=== PATIENT | female | born 1985 | race Caucasian/White ===

== ENCOUNTER 2018-07-18 18:01 | Observation (INO) ==
[2018-07-18] MEDS ORDERED: 0.9 % Sodium Chloride 1,000 ML IVC ONE (18:34)
[2018-07-18] MEDS ORDERED: Ketorolac 30 MG/ML VIAL IVP ONE (18:34)
[2018-07-18] MEDS ORDERED: Ondansetron 4 MG/2 ML VIAL IVP ONE (18:35)
[2018-07-18] MEDS ORDERED: Isovue-370 500 ML BOTTLE IVP ONE (18:35)
--- NOTE | 2018-07-18 18:38 | Emergency Department Note ---
Disposition Clinical Impression: Abdominal pain Qualifiers: Abdominal location: right lower quadrant Qualified Code(s): R10.31 - Right lower quadrant pain Acute appendicitis Qualifiers: Acute appendicitis type: unspecified acute appendicitis type Qualified Code(s): K35.80 - Unspecified acute appendicitis Disposition: Admitted As Inpatient Condition: Good Time of Disposition: 20:33 Abdominal Pain HPI - General Chief Complaint: ED Abdominal Pain Stated Complaint: RLQ Pain Time Seen by Provider: 07/18/18 18:10 Source: patient Mode of arrival: ambulatory Limitations: no limitations Nursing Notes Reviewed: Yes Vital Signs Reviewed: Yes - History of Present Illness HPI Narrative: 32-year-old otherwise healthy female persists for evaluation of right lower qu adrant pain. Patient states symptom onset started earlier this morning around 1 to 3:00 in the morning. Patient states he is having nausea and vomiting and diarrhea. Noted subsequent onset of periumbilical pain which became more localized to the right lower quadrant this afternoon. Patient states pain became worse approximately 5 hours prior to arrival. States pain is worse with the car ride over and movement. Patient states she has had some hot and cold chills. Denies any dysuria or hematuria. Denies a vaginal bleeding or discharge. Denies possibility of being . States that her LMP was 1 month ago but states she has regular periods every 3 months. Patient states she had some crackers earlier this morning but has not eaten anything in the past 6 hours. Patient also has diversion of appetite. Pain Scale: 6 - Related Data Home Medications Medication Instructions Recorded Confirmed Cetirizine HCl [Zyrtec] 10 mg PO DAILY PRN 07/18/18 07/18/18 l-Norgest/E.estradiol-E.estrad 1 tab PO DAILY 07/18/18 07/18/18 [Seasonique 0.15-0.03-0.01 Tab] Allergies Allergy/AdvReac Type Severity Reaction Status Date / Time No Known Allergies Allergy Verified 07/18/18 18:02 All systems ED: reviewed and negative except as stated. Constitutional: Denies: fever Cardiovascular: Denies: chest pain Respiratory: Denies: cough, dyspnea Gastrointestinal: Reports: abdominal pain, nausea, vomiting, diarrhea Abdominal Pain PMH - Past Medical History Medical history: Reports: no medical history Female Surgical History: Reports: no surgical history Psychiatric history: Reports: no psych history - Social History Smoking status: Never smoker Alcohol use: Reports: occasionally Drug use: Reports: none Physical Exam - General Limitations: no limitations General appearance: alert, in no apparent distress - Head Head exam: atraumatic, normocephalic, normal inspection - Eye Eye exam: Present: normal appearance, PERRL, EOMI - ENT ENT exam: normal exam, mucous membranes moist - Neck Neck exam: Present: normal inspection - Chest Chest inspection: Present: normal inspection, symmetric chest wall rise - Respiratory Respiratory exam: Present: normal lung sounds bilaterally. Absent: respiratory distress - Cardiovascular Cardiovascular exam: Present: regular rate, normal rhythm. Absent: normal heart sounds - Abdominal Exam Abdominal exam: Present: soft, Rovsing's sign, tenderness at McBurney's Point. Absent: guarding, rebound Abdominal tenderness: Present: RLQ - Extremities Exam Extremities exam: Present: normal inspection. Absent: pedal edema - Back Exam Back exam: Present: normal inspection - Neurological Exam Neurological exam: Present: alert, oriented X3, CN II-XII intact - Skin Skin exam: Present: warm, dry, intact, normal color Course Course Narrative: Patient seen and examined. Patient abdomen is non-peritoneal but does have evidence of right lower quadrant tenderness. Positive Rovsing's. Patient has concerning history and physical exam for appendicitis. Will obtain basic labs as well as CT scan of the abdomen pelvis. Disposition pending. - Reevaluation(s) Reevaluation #1: Given the high pretest probability of appendicitis with elevated lactate and the patient's exam antibiotics are initiated. Pending CT scan. Time: 20:16 Reevaluation #2: Patient family is requesting Dr. Ramires. Dr. Ramires aware and will accept the patient. Time: 20:46 - Consultations Consultation #1: Dr. Haywood did discuss the patient's case with Dr. Ramires who will evaluate the patient. Time: 20:32 Vital Signs Temperature 98.5 F 07/18/18 18:02 Pulse Rate 126 07/18/18 18:02 Respiratory Rate 14 07/18/18 18:02 Blood Pressure 166/100 07/18/18 18:02 O2 Sat by Pulse Oximetry 98 07/18/18 18:02 Temperature 98.5 F 07/18/18 18:02 Pulse Rate 110 07/18/18 20:15 Respiratory Rate 16 07/18/18 20:15 Blood Pressure 159/90 07/18/18 20:15 O2 Sat by Pulse Oximetry 100 07/18/18 20:15 Oxygen Delivery Oxygen Delivery Room Air Abdominal Pain - MDM Narrative Medical decision making narrative: Patient's physical exam laboratories will CT findings are concerning for acute appendicitis. Patient was given Zosyn as well as fluids and anti- inflammatories. Did discuss the case with surgery who will evaluate the patient. Patient will be admitted to the surgery services. Patient's exam is non-peritoneal during the ED course. - Lab Data Result diagrams: 07/18/18 19:15 07/18/18 19:15 Lab Results 07/18/18 07/18/18 07/18/18 Range/Units 18:18 18:18 19:15 WBC 22.7 H (4.3-11.1) K/mcL RBC 5.28 H (3.82-4.97) M/mcL Hgb 13.6 (11.5-15.4) g/dL Hct 42.1 (35.3-44.9) % MCV 79.7 L (83.0-100.0) fL MCH 25.8 L (28.0-33.3) pg MCHC 32.3 (31.6-35.5) g/dL RDW 14.7 H (11.5-14.5) % Plt Count 373 (140-400) K/mcL MPV 9.2 L (9.4-12.4) fL Immature Gran % 0.4 (0-4) % Seg Neutrophils % 85.2 % Lymphocytes % 10.0 % Monocytes % 4.2 % Eosinophils % 0.0 % Basophils % 0.2 % Neutrophils # 19.4 H (1.6-8.9) K/mcL Lymphocytes # 2.3 (0.6-4.6) K/mcL Monocytes # 1.0 (0.0-1.3) K/mcL Eosinophils # 0.0 (0.0-0.6) K/mcL Basophils # 0.0 (0.0-0.2) K/mcL PT (9.4-12.1) Seconds INR APTT (26.0-36.0) Seconds Sodium (136-145) mEq/L Potassium (3.5-5.1) mEq/L Chloride (98-107) mEq/L Carbon Dioxide (23-29) mEq/L BUN (6-20) mg/dL Creatinine (0.60-1.20) mg/dL Est GFR ( Amer) (> 60) Est GFR (Non-Af Amer) (> 60) BUN/Creatinine Ratio (6-26) Glucose (70-105) mg/dL Calculated Osmolality (280-300) Calcium (8.6-10.3) mg/dL Total Bilirubin (0.3-1.0) mg/dL Direct Bilirubin (0.0-0.2) mg/dL Indirect Bilirubin (0.0-1.2) mg/dL AST (13-39) Units/L ALT (7-52) Units/L Alkaline Phosphatase (34-104) Units/L Serum Total Protein (6.4-8.9) g/dL Albumin (3.5-5.7) g/dL Globulin (2.4-3.5) g/dL Albumin/Globulin Ratio (1.1-2.2) Urine Color Dark Yellow (Yellow) Urine Clarity Cloudy A (Clear) Urine pH 5.5 (5.0-8.0) pH Units Ur Specific [place] 1.027 H (1.010-1.025) Urine Protein 100 H (Neg-Trace) mg/dL Urine Glucose (UA) Normal (Normal) mg/dL Urine Ketones Trace H (Negative) mg/dL Urine Blood Trace H (Negative) Urine Nitrite Negative (Negative) Urine Bilirubin Negative (Negative) Urine Urobilinogen Normal (Normal) mg/dL Ur Leukocyte Esterase Small H (Negative) Urine Microscopic RBC 3-5 H (0-3) per hpf Urine Microscopic WBC 50-100 H (0-3) per hpf Ur Squamous Epith Cells Many H (None-Few) per lpf Urine Bacteria Many H (None-Few) per hpf Hyaline Casts Few (None-Few) per lpf Urine Mucus Moderate H (Few) Urine Test Negative (Negative) 07/18/18 07/18/18 Range/Units 19:15 19:15 WBC (4.3-11.1) K/mcL RBC (3.82-4.97) M/mcL Hgb (11.5-15.4) g/dL Hct (35.3-44.9) % MCV (83.0-100.0) fL MCH (28.0-33.3) pg MCHC (31.6-35.5) g/dL RDW (11.5-14.5) % Plt Count (140-400) K/mcL MPV (9.4-12.4) fL Immature Gran % (0-4) % Seg Neutrophils % % Lymphocytes % % Monocytes % % Eosinophils % % Basophils % % Neutrophils # (1.6-8.9) K/mcL Lymphocytes # (0.6-4.6) K/mcL Monocytes # (0.0-1.3) K/mcL Eosinophils # (0.0-0.6) K/mcL Basophils # (0.0-0.2) K/mcL PT 12.3 H (9.4-12.1) Seconds INR 1.1 APTT 27.6 (26.0-36.0) Seconds Sodium 140 (136-145) mEq/L Potassium 3.3 L (3.5-5.1) mEq/L Chloride 104 (98-107) mEq/L Carbon Dioxide 26 (23-29) mEq/L BUN 12 (6-20) mg/dL Creatinine 0.81 (0.60-1.20) mg/dL Est GFR ( Amer) > 60 (> 60) Est GFR (Non-Af Amer) > 60 (> 60) BUN/Creatinine Ratio 15 (6-26) Glucose 138 H (70-105) mg/dL Calculated Osmolality 292 (280-300) Calcium 9.5 (8.6-10.3) mg/dL Total Bilirubin 0.5 (0.3-1.0) mg/dL Direct Bilirubin 0.1 (0.0-0.2) mg/dL Indirect Bilirubin 0.4 (0.0-1.2) mg/dL AST 24 (13-39) Units/L ALT 39 (7-52) Units/L Alkaline Phosphatase 47 (34-104) Units/L Serum Total Protein 7.4 (6.4-8.9) g/dL Albumin 4.2 (3.5-5.7) g/dL Globulin 3.2 (2.4-3.5) g/dL Albumin/Globulin Ratio 1.3 (1.1-2.2) Urine Color (Yellow) Urine Clarity (Clear) Urine pH (5.0-8.0) pH Units Ur Specific [place] (1.010-1.025) Urine Protein (Neg-Trace) mg/dL Urine Glucose (UA) (Normal) mg/dL Urine Ketones (Negative) mg/dL Urine Blood (Negative) Urine Nitrite (Negative) Urine Bilirubin (Negative) Urine Urobilinogen (Normal) mg/dL Ur Leukocyte Esterase (Negative) Urine Microscopic RBC (0-3) per hpf Urine Microscopic WBC (0-3) per hpf Ur Squamous Epith Cells (None-Few) per lpf Urine Bacteria (None-Few) per hpf Hyaline Casts (None-Few) per lpf Urine Mucus (Few) Urine Test (Negative) - Radiology Data Radiology results reviewed: Yes I reviewed the patient's radiology results. Abdomen/Pelvis CT 07/18/18 18:35 IMPRESSION: Acute retrocecal appendicitis. There is significant periappendiceal fat stranding and trace fluid with no evidence of perforation or abscess. Findings were discussed with Trae Murillo DO at 8:43 pm on 07/18/2018. D/ / Man Sheridan MD / Man Sheridan MD Interpreting Provider: Man Sheridan MD Evan - Evan Situation: Demographics Background: Presenting Complaint Assessment: Vital Signs, Course and respsone to treatment, Patient/Family Expectation Recommendation: Barrier(s) to disposition, Recommendation based on pending studies, treatments, or consults Evan Report Given to: Dr. Keyla Gordon Repor Time: 20:46
--- NOTE | 2018-07-18 18:39 | Emergency Department Note ---
Disposition Clinical Impression: Abdominal pain Qualifiers: Abdominal location: right lower quadrant Qualified Code(s): R10.31 - Right lower quadrant pain Acute appendicitis Qualifiers: Acute appendicitis type: unspecified acute appendicitis type Qualified Code(s): K35.80 - Unspecified acute appendicitis Disposition: Admitted As Inpatient Condition: Good Time of Disposition: 15:01 General Adult HPI - General Chief complaint: ED Abdominal Pain Stated complaint: RLQ Pain Time Seen by Provider: 07/18/18 18:10 Source: patient Mode of arrival: ambulatory Limitations: no limitations - History of Present Illness Pain Scale: 6 - Related Data Home Medications Medication Instructions Recorded Confirmed Cetirizine HCl [Zyrtec] 10 mg PO DAILY PRN 07/18/18 07/18/18 l-Norgest/E.estradiol-E.estrad 1 tab PO DAILY 07/18/18 07/18/18 [Seasonique 0.15-0.03-0.01 Tab] Previous Rx's Medication Instructions Recorded Acetaminophen [Tylenol] 650 mg PO Q6HR PRN tablet 07/19/18 Allergies Allergy/AdvReac Type Severity Reaction Status Date / Time No Known Allergies Allergy Verified 07/18/18 18:02 Constitutional: Denies: fever Cardiovascular: Denies: chest pain Respiratory: Denies: cough, dyspnea Gastrointestinal: Reports: abdominal pain, nausea, vomiting, diarrhea Past Medical History - Past Medical History Medical history: Reports: no medical history Psychiatric history: Reports: no psych history - Social History Smoking Status: Never smoker Smokeless Tobacco Status: No Alcohol use: Reports: occasionally Drug use: Reports: none Physical Exam - General Limitations: no limitations General appearance: alert, in no apparent distress Course Vital Signs Temperature 98.5 F 07/18/18 18:02 Pulse Rate 126 07/18/18 18:02 Respiratory Rate 14 07/18/18 18:02 Blood Pressure 166/100 07/18/18 18:02 O2 Sat by Pulse Oximetry 98 07/18/18 18:02 Temperature 98.0 F 07/19/18 06:26 Pulse Rate 96 07/19/18 06:26 Respiratory Rate 18 07/19/18 06:26 Blood Pressure 125/70 07/19/18 06:26 O2 Sat by Pulse Oximetry 96 07/19/18 06:26 Oxygen Delivery Oxygen Delivery Room Air Medical Decision Making - Lab Data Result diagrams: 07/19/18 09:12 07/18/18 19:15 Lab Results 07/18/18 07/18/18 07/18/18 Range/Units 18:18 18:18 19:15 WBC 22.7 H (4.3-11.1) K/mcL RBC 5.28 H (3.82-4.97) M/mcL Hgb 13.6 (11.5-15.4) g/dL Hct 42.1 (35.3-44.9) % MCV 79.7 L (83.0-100.0) fL MCH 25.8 L (28.0-33.3) pg MCHC 32.3 (31.6-35.5) g/dL RDW 14.7 H (11.5-14.5) % Plt Count 373 (140-400) K/mcL MPV 9.2 L (9.4-12.4) fL Immature Gran % 0.4 (0-4) % Seg Neutrophils % 85.2 % Lymphocytes % 10.0 % Monocytes % 4.2 % Eosinophils % 0.0 % Basophils % 0.2 % Neutrophils # 19.4 H (1.6-8.9) K/mcL Lymphocytes # 2.3 (0.6-4.6) K/mcL Monocytes # 1.0 (0.0-1.3) K/mcL Eosinophils # 0.0 (0.0-0.6) K/mcL Basophils # 0.0 (0.0-0.2) K/mcL PT (9.4-12.1) Seconds INR APTT (26.0-36.0) Seconds Sodium (136-145) mEq/L Potassium (3.5-5.1) mEq/L Chloride (98-107) mEq/L Carbon Dioxide (23-29) mEq/L BUN (6-20) mg/dL Creatinine (0.60-1.20) mg/dL Est GFR ( Amer) (> 60) Est GFR (Non-Af Amer) (> 60) BUN/Creatinine Ratio (6-26) Glucose (70-105) mg/dL Calculated Osmolality (280-300) Calcium (8.6-10.3) mg/dL Total Bilirubin (0.3-1.0) mg/dL Direct Bilirubin (0.0-0.2) mg/dL Indirect Bilirubin (0.0-1.2) mg/dL AST (13-39) Units/L ALT (7-52) Units/L Alkaline Phosphatase (34-104) Units/L Serum Total Protein (6.4-8.9) g/dL Albumin (3.5-5.7) g/dL Globulin (2.4-3.5) g/dL Albumin/Globulin Ratio (1.1-2.2) Urine Color Dark Yellow (Yellow) Urine Clarity Cloudy A (Clear) Urine pH 5.5 (5.0-8.0) pH Units Ur Specific [place] 1.027 H (1.010-1.025) Urine Protein 100 H (Neg-Trace) mg/dL Urine Glucose (UA) Normal (Normal) mg/dL Urine Ketones Trace H (Negative) mg/dL Urine Blood Trace H (Negative) Urine Nitrite Negative (Negative) Urine Bilirubin Negative (Negative) Urine Urobilinogen Normal (Normal) mg/dL Ur Leukocyte Esterase Small H (Negative) Urine Microscopic RBC 3-5 H (0-3) per hpf Urine Microscopic WBC 50-100 H (0-3) per hpf Ur Squamous Epith Cells Many H (None-Few) per lpf Urine Bacteria Many H (None-Few) per hpf Hyaline Casts Few (None-Few) per lpf Urine Mucus Moderate H (Few) Urine Test Negative (Negative) 07/18/18 07/18/18 Range/Units 19:15 19:15 WBC (4.3-11.1) K/mcL RBC (3.82-4.97) M/mcL Hgb (11.5-15.4) g/dL Hct (35.3-44.9) % MCV (83.0-100.0) fL MCH (28.0-33.3) pg MCHC (31.6-35.5) g/dL RDW (11.5-14.5) % Plt Count (140-400) K/mcL MPV (9.4-12.4) fL Immature Gran % (0-4) % Seg Neutrophils % % Lymphocytes % % Monocytes % % Eosinophils % % Basophils % % Neutrophils # (1.6-8.9) K/mcL Lymphocytes # (0.6-4.6) K/mcL Monocytes # (0.0-1.3) K/mcL Eosinophils # (0.0-0.6) K/mcL Basophils # (0.0-0.2) K/mcL PT 12.3 H (9.4-12.1) Seconds INR 1.1 APTT 27.6 (26.0-36.0) Seconds Sodium 140 (136-145) mEq/L Potassium 3.3 L (3.5-5.1) mEq/L Chloride 104 (98-107) mEq/L Carbon Dioxide 26 (23-29) mEq/L BUN 12 (6-20) mg/dL Creatinine 0.81 (0.60-1.20) mg/dL Est GFR ( Amer) > 60 (> 60) Est GFR (Non-Af Amer) > 60 (> 60) BUN/Creatinine Ratio 15 (6-26) Glucose 138 H (70-105) mg/dL Calculated Osmolality 292 (280-300) Calcium 9.5 (8.6-10.3) mg/dL Total Bilirubin 0.5 (0.3-1.0) mg/dL Direct Bilirubin 0.1 (0.0-0.2) mg/dL Indirect Bilirubin 0.4 (0.0-1.2) mg/dL AST 24 (13-39) Units/L ALT 39 (7-52) Units/L Alkaline Phosphatase 47 (34-104) Units/L Serum Total Protein 7.4 (6.4-8.9) g/dL Albumin 4.2 (3.5-5.7) g/dL Globulin 3.2 (2.4-3.5) g/dL Albumin/Globulin Ratio 1.3 (1.1-2.2) Urine Color (Yellow) Urine Clarity (Clear) Urine pH (5.0-8.0) pH Units Ur Specific [place] (1.010-1.025) Urine Protein (Neg-Trace) mg/dL Urine Glucose (UA) (Normal) mg/dL Urine Ketones (Negative) mg/dL Urine Blood (Negative) Urine Nitrite (Negative) Urine Bilirubin (Negative) Urine Urobilinogen (Normal) mg/dL Ur Leukocyte Esterase (Negative) Urine Microscopic RBC (0-3) per hpf Urine Microscopic WBC (0-3) per hpf Ur Squamous Epith Cells (None-Few) per lpf Urine Bacteria (None-Few) per hpf Hyaline Casts (None-Few) per lpf Urine Mucus (Few) Urine Test (Negative) Attestation Statement - Attestation Attestation: I reviewed the residents documentation and agree with the residents assessment and plan of care. I have personally had face to face time with the patient. (Brief History, Brief Exam, and MDM) I personally supervised and was present for the fu/critical portions of the following procedures completed by the resident: (add procedures performed here). [id number] time provided Patient was complaining of right lower quadrant pain that started periumbilically. She notes nausea, vomiting, anorexia. She appears in no acute distress on exam. Triage note and vitals reviewed by me
[2018-07-18 18:42] LABS: Bilirubin,Urine Negative (Negative); Blood,Urine Trace (Negative); Clarity,Urine Cloudy (Clear); Color,Urine Dark Yellow (Yellow); Glucose,Urine (UA) Normal (Normal); Ketones,Urine Trace mg/dL (Negative); Leukocyte Esterase,Urine Small (Negative); Nitrite,Urine Negative (Negative); PH,Urine 5.5 pH Units (5.0-8.0); Protein,Urine 100 mg/dL (Neg-Trace); Specific Gravity,Urine 1.027 (1.010-1.025); Urobilinogen,Urine Normal (Normal)
[2018-07-18 18:45] LABS: Bacteria,Urine Many per hpf (None-Few); Squamous Epithelial Cell,Urine Many per lpf (None-Few); WBC,Urine 50-100 per hpf (0-3)
[2018-07-18 18:55] LABS: Hyaline Casts,Urine Few per lpf (None-Few); Mucus,Urine Moderate (Few)
[2018-07-18 19:36] LABS: Basophils % 0.2 %; Hematocrit 42.1 % (35.3-44.9); Hemoglobin 13.6 g/dL (11.5-15.4); Immature Granulocytes % 0.4 % (0-4); Lymphocytes # 2.3 K/mcL (0.6-4.6); Mean Corpuscular HGB Conc 32.3 g/dL (31.6-35.5); Mean Corpuscular Hemoglobin 25.8 pg (28.0-33.3); Mean Corpuscular Volume 79.7 fL (83.0-100.0); Mean Platelet Volume 9.2 fL (9.4-12.4); Monocytes % 4.2 %; Neutrophils # 19.4 K/mcL (1.6-8.9); Platelet Count 373 K/mcL (140-400); Red Blood Count 5.28 M/mcL (3.82-4.97); Red Cell Distribution Width 14.7 % (11.5-14.5); Segmented Neutrophils % 85.2 %
[2018-07-18 19:49] LABS: Alanine Aminotransferase 39 Units/L (7-52); Albumin 4.2 g/dL (3.5-5.7); Albumin/Globulin Ratio 1.3 (1.1-2.2); Alkaline Phosphatase 47 Units/L (34-104); Aspartate Amino Transferase 24 Units/L (13-39); BUN/Creatinine Ratio 15 (6-26); Bilirubin,Direct 0.1 mg/dL (0.0-0.2); Bilirubin,Indirect 0.4 mg/dL (0.0-1.2); Bilirubin,Total 0.5 mg/dL (0.3-1.0); Blood Urea Nitrogen 12 mg/dL (6-20); Calcium 9.5 mg/dL (8.6-10.3); Carbon Dioxide 26 mEq/L (23-29); Chloride 104 mEq/L (98-107); Globulin 3.2 g/dL (2.4-3.5); Glucose 138 mg/dL (70-105); Osmolality,Calculated 292 (280-300); Potassium 3.3 mEq/L (3.5-5.1); Sodium 140 mEq/L (136-145); Total Protein 7.4 g/dL (6.4-8.9); eGFR For Non-African Americans > 60 (> 60)
[2018-07-18] MEDS ORDERED: Piperacillin/Tazobactam 3.375 GM in Water for inj. (sterile) 20 ML 20 ML IVP ONE (20:04)
[2018-07-18] MEDS ORDERED: 0.9 % Sodium Chloride 1,000 ML IVC SCH (20:30)
[2018-07-18 20:47] LABS: INR 1.1; Prothrombin Time 12.3 Seconds (9.4-12.1)
[2018-07-18 20:50] LABS: Activated Partial Thrombo Time 27.6 Seconds (26.0-36.0)
[2018-07-18] MEDS ORDERED: Lidocaine -MPF 4% 5 ML AMPUL ONE (21:15)
[2018-07-18] MEDS ORDERED: *HR* Succinylcholine 200 MG/10 ML VIAL IVP ONE (21:15)
[2018-07-18] MEDS ORDERED: *HR* Midazolam HCl 2 MG/2 ML VIAL ONE (21:15)
[2018-07-18] MEDS ORDERED: *HR* Rocuronium Bromide 50 MG/5 ML VIAL ONE ×2 (21:15→23:33)
[2018-07-18] MEDS ORDERED: *HR* Propofol 200 MG/20 ML VIAL IVP ONE (21:15)
[2018-07-18] MEDS ORDERED: Lidocaine -MPF 2% 2 ML VIAL ONE (21:15)
[2018-07-18] MEDS ORDERED: *HR* FentaNYL (PF) 100 MCG/2 ML VIAL ONE (21:15)
[2018-07-18] MEDS ORDERED: Bupivacaine/EPI 1:200k 0.25%PF 30 ML VIAL ONE (21:20)
[2018-07-18] MEDS ORDERED: Dexamethasone 4 MG/ML VIAL ONE (21:21)
[2018-07-18] MEDS ORDERED: Ondansetron 4 MG/2 ML VIAL ONE (21:21)
[2018-07-18] MEDS ORDERED: Metoclopramide 10 MG/2 ML VIAL ONE (21:21)
[2018-07-18] MEDS ORDERED: Ketorolac 30 MG/ML VIAL ONE (21:24)
[2018-07-18] MEDS ORDERED: Acetaminophen IV 1,000 MG/100 ML INFUS..BTL ONE (21:25)
[2018-07-18] MEDS ORDERED: Famotidine 20 MG/2 ML VIAL ONE (21:25)
--- NOTE | 2018-07-18 21:34 | Anesthesia Evaluation PreOp ---
Date of Encounter: 07/19/18 Time of Encounter: 21:32 - Past History Planned Operation: Lap Appy Cardiac History: Denies any Significant Hx Pulmonary History: Denies Any Significant HX GASTROENTEROLOGY NURSE History: Denies Any Significant HX Other Medical History: Denies Any Significant HX Anesthesia History: No Prior Anesthetic Complications, Past Anesthesia Alcohol Use: occasionally Drug use: none Medications and Allergies Cetirizine HCl [Zyrtec] 10 mg PO DAILY PRN 07/18/18 [History] l-Norgest/E.estradiol-E.estrad [Seasonique 0.15-0.03-0.01 Tab] 1 tab PO DAILY 07/18/18 [History] Allergy/AdvReac Type Severity Reaction Status Date / Time No Known Allergies Allergy Verified 07/18/18 18:02 - Meds/Allergy Pre-op Review Medications Reviewed: Yes Allergies Reviewed: Yes Beta Blockers on Current Med List: No Anesthesia Results - Labs 07/18/18 19:15 07/18/18 19:15 Impressions Abdomen/Pelvis CT 07/18/18 18:35 IMPRESSION: Acute retrocecal appendicitis. There is significant periappendiceal fat stranding and trace fluid with no evidence of perforation or abscess. Findings were discussed with Trae Murillo DO at 8:43 pm on 07/18/2018. D/ / Man Sheridan MD / Man Sheridan MD Interpreting Provider: Man Sheridan MD Laboratory Results Laboratory Tests 07/18/18 07/18/18 07/18/18 18:18 19:15 19:15 PT 12.3 H INR 1.1 Est GFR (Non-Af Amer) > 60 Urine Test Negative Anesthesia Exam Vital Signs Temp Pulse Resp BP Pulse Ox 07/18/18 20:15 110 16 159/90 100 07/18/18 19:18 99 16 171/105 99 07/18/18 18:02 98.5 F 126 14 166/100 98 Intake and Output 07/18/18 07/18/18 07/18/18 07:59 15:59 23:59 Intake Total 1020 / 1020 Balance 1020 / 1020 Intake: IV Fluids 1020 / 1020 0.9 % Sodium Chloride 1,000 ML 1000 / 1000 @ 999 mls/hr IVC .Q1H1M ONE Rx# :[id number] Zosyn 3.375 GM In Water for inj 20 / 20 . (sterile) 20 ML @ 400 mls/hr IVP ONCE ONE Rx#:[id number] Other: Weight 96.071 kg Height: 5'7" Weight: 211# BMI = 33 NPO (# of Hours): MNoc - HEENT Pupil (Motor): Pupils equal, EOMI Mallampati: II Teeth: Normal Oral Opening: Greater than 3 - GASTROENTEROLOGY NURSE LOC: Oriented GASTROENTEROLOGY NURSE Motor: Normal RUE, Normal LUE, Normal RLE, Normal LLE, Normal Face GASTROENTEROLOGY NURSE Sensory: Normal: RUE, LUE, RLE, LLE, Face - Cardiac Rhythm: Regular Murmur: None - Pulmonary Breath Sounds: bilateral Clear Respiratory Effort: Symmetrical Anesthesia Assess/Plan ASA Score: 2, E Level of consciousness: Cooperative, Oriented, Tranquil Anesthetic Plan: General Autologous Blood: Yes Recovery Plan: PACU Anes Supervising Prov Stmt: Pt seen/evaluated, R&B Discussed, questions answered and consent obtained. Louise Melvin MD
--- NOTE | 2018-07-18 22:27 | General Surg History&Physical ---
Date of Encounter: 07/18/18 Time of Encounter: 21:50 History of Present Illness Chief complaint: Acute right lower quadrant abdominal pain; acute appendicitis HPI: Ms. Ballesteros is a 32 year old female referred to me, at the patient's request, for further evaluation and treatment right lower quadrant abdominal pain. The symptoms began abruptly at approximately 0100 early this morning. It awaken the patient from sleep. The patient experienced nausea/vomiting early this morning but none since and she has not tried to eat anything. Symptoms progressed prompting patient to present to the emergency department for further evaluation and treatment. Lab work was notable for WBC 22.7 with 19.4 neutrophils. Electrolytes notable for potassium of 3.3, BUN 12, creatinine 0.81. LFTs were normal, and urinalysis was notable for specific gravity 1.027 with 100 protein and trace ketones and trace blood. Microscopic showed 3-5 RBC/hpf and 50-100 wbc/hpf. CT is notable for a dilated retrocecal appendix with thick, enhancing wall and periappendiceal fat stranding. Findings are consistent with early acute appendicitis prompting surgical referral. Past medical history: None Surgical history: No previous surgeries Allergies: No known drug allergies Medications: control Social history: The patient does not smoke, she admits to a rare alcoholic beverage, she does not consume illicit drugs. She is G0. Family history: Noncontributory in terms of acute appendicitis Physical examination: Age-appropriate woman resting comfortably in her hospital bed. She has been afebrile, 98.5, pulse has been rapid ranging 99-126; respiratory rate 16 and nonlabored; blood pressure 159/90 - 161/96. SPO2 on room air 96% The patient is 1.7 m tall, 96.07 kg, BMI 33.2 Skin is warm without obvious jaundice Lungs: Clear bilaterally; no obvious pain on deep inspiration Cardiac: Rapid rate without detected murmurs Abdomen: Soft with tenderness in the right lower quadrant as well as minimal referred pain to the right lower quadrant when the left lower quadrant is palpated. No obvious intra-abdominal masses. No elicited rebound. Bowel sounds were hypoactive Extremities: No obvious clubbing, cyanosis or edema. Impression: 32-year-old female with right lower quadrant abdominal pain since approximately 0100. Findings are consistent with acute appendicitis. Treatment options include surgery. The patient is a reasonable candidate for laparoscopic appendectomy but understands an open appendectomy may become necessary. Alternative to surgery is 3 days of IV antibiotics followed by 1 week of oral antibiotics post discharge home if the patient's symptoms subside. Risks of medical management include worsening appendicitis, perforation, and recurrence in the future. Risks of surgery include hemorrhage infection intra-abdominal abscess injury to adjacent structures, respiratory risks such as pneumonia respiratory failure, and cardiac risks such as dysrhythmia and MT. The patient has chosen to proceed with surgery. Surgical consent has been obtained. If a normal appendix is encountered despite the clinical and radiologic findings, it will be removed and obviously additional search for the source of the patient's symptoms will be necessary. Past Med Surg Social Fam HX - Past Medical History Medical history: no medical history Psychiatric history: no psych history - Social History Smoking Status: Never smoker Smokeless Tobacco Status: No Alcohol use: occasionally Drug use: none Medications and Allergies Cetirizine HCl [Zyrtec] 10 mg PO DAILY PRN 07/18/18 [History] l-Norgest/E.estradiol-E.estrad [Seasonique 0.15-0.03-0.01 Tab] 1 tab PO DAILY 07/18/18 [History] Allergy/AdvReac Type Severity Reaction Status Date / Time No Known Allergies Allergy Verified 07/18/18 18:02 Review of Systems All systems PM: The remainder of the systems were reviewed and are negative General Surgery Exam Initial Vital Signs Temp Pulse Resp BP Pulse Ox 98.5 F 126 14 166/100 98 07/18/18 18:02 07/18/18 18:02 07/18/18 18:02 07/18/18 18:02 07/18/18 18:02 Results - Labs 07/18/18 19:15 07/18/18 19:15 Abnormal lab results WBC 22.7 K/mcL (4.3-11.1) H 07/18/18 19:15 RBC 5.28 M/mcL (3.82-4.97) H 07/18/18 19:15 MCV 79.7 fL (83.0-100.0) L 07/18/18 19:15 MCH 25.8 pg (28.0-33.3) L 07/18/18 19:15 RDW 14.7 % (11.5-14.5) H 07/18/18 19:15 MPV 9.2 fL (9.4-12.4) L 07/18/18 19:15 19.4 K/mcL (1.6-8.9) H 07/18/18 19:15 PT 12.3 Seconds (9.4-12.1) H 07/18/18 19:15 Potassium 3.3 mEq/L (3.5-5.1) L 07/18/18 19:15 Glucose 138 mg/dL (70-105) H 07/18/18 19:15 Cloudy (Clear) A 07/18/18 18:18 Ur Specific Walton 1.027 (1.010-1.025) H 07/18/18 18:18 100 mg/dL (Neg-Trace) H 07/18/18 18:18 Trace mg/dL (Negative) H 07/18/18 18:18 Trace (Negative) H 07/18/18 18:18 Ur Leukocyte Esterase Small (Negative) H 07/18/18 18:18 3-5 per hpf (0-3) H 07/18/18 18:18 50-100 per hpf (0-3) H 07/18/18 18:18 Ur Squamous Epith Cells Many per lpf (None-Few) H 07/18/18 18:18 Many per hpf (None-Few) H 07/18/18 18:18 Moderate (Few) H 07/18/18 18:18 Diabetes panel 07/18/18 Range/Units 19:15 Sodium 140 (136-145) mEq/L Potassium 3.3 L (3.5-5.1) mEq/L Chloride 104 (98-107) mEq/L Carbon Dioxide 26 (23-29) mEq/L BUN 12 (6-20) mg/dL Creatinine 0.81 (0.60-1.20) mg/dL Glucose 138 H (70-105) mg/dL Calcium 9.5 (8.6-10.3) mg/dL AST 24 (13-39) Units/L ALT 39 (7-52) Units/L Alkaline Phosphatase 47 (34-104) Units/L Albumin 4.2 (3.5-5.7) g/dL Calcium panel 07/18/18 Range/Units 19:15 Calcium 9.5 (8.6-10.3) mg/dL Albumin 4.2 (3.5-5.7) g/dL Pituitary panel 07/18/18 Range/Units 19:15 Sodium 140 (136-145) mEq/L Potassium 3.3 L (3.5-5.1) mEq/L Chloride 104 (98-107) mEq/L Carbon Dioxide 26 (23-29) mEq/L BUN 12 (6-20) mg/dL Creatinine 0.81 (0.60-1.20) mg/dL Glucose 138 H (70-105) mg/dL Calcium 9.5 (8.6-10.3) mg/dL Adrenal panel 07/18/18 Range/Units 19:15 Sodium 140 (136-145) mEq/L Potassium 3.3 L (3.5-5.1) mEq/L Chloride 104 (98-107) mEq/L Carbon Dioxide 26 (23-29) mEq/L BUN 12 (6-20) mg/dL Creatinine 0.81 (0.60-1.20) mg/dL Glucose 138 H (70-105) mg/dL Calcium 9.5 (8.6-10.3) mg/dL Total Bilirubin 0.5 (0.3-1.0) mg/dL AST 24 (13-39) Units/L ALT 39 (7-52) Units/L Alkaline Phosphatase 47 (34-104) Units/L Albumin 4.2 (3.5-5.7) g/dL All other labs normal.
[2018-07-18] MEDS ORDERED: *HR* HYDROMORPHONE 2 MG/ML VIAL ONE (23:34)
[2018-07-18] MEDS ORDERED: Neostigmine Methylsulfate 3 MG/3 ML SYRINGE ONE (23:51)
[2018-07-19] MEDS ORDERED: Ringers Solution, Lactated 500 ML IVC ONE (00:19)
--- NOTE | 2018-07-19 00:28 | Operative Note ---
Date of procedure: 07/19/18 Pre-op diagnosis: Acute appendicitis Post-op diagnosis: other (Acute retrocecal appendicitis) Procedure: Laparoscopic appendectomy; lysis of adhesions Complications: None apparent Anesthesia: GETA Local Anesthetics: 0.25% Sensorcaine HCL with Epinephrine 1:200,000 SubQ (cc) (30 mL) Surgeon: Lavell Ramires Was there an laboratory assistant present: No Estimated blood loss (cc): 5 IV fluids (cc): 1,300 Specimen: appendix Condition: stable Disposition: PACU Procedure in Detail: The patient was brought to the operating room where she was placed supine on the procedure table. Patient was identified to appropriate person and procedure. The accuracy of this information was confirmed by the patient and procedure team. The patient was then intubated and anesthetized under the supervision of Dr. Rere Alas. The abdomen was prepped and draped in usual sterile fashion. There were no detected intra-abdominal masses within the abdomen was examined under anesthesia. Surgery commenced when the team indicated their readiness to proceed. Several milliliters of 0.25% bupivacaine with 1 200,000 epinephrine was infiltrated into the infraumbilical skin. A small transverse incision was made and extended to the fascia. The fascia was grasped, elevated, with additional bupivacaine with epinephrine infiltrated. The fascia was then incised. An 11 mm Xcel port was established. The rigid laparoscope was placed within the obturator to visualize passage through the layers of the anterior abdominal wall. When the abdominal cavity was accessed, the obturator was replaced by the rigid laparoscope, the abdomen was insufflated with gaseous carbon dioxide. There was no obvious visible injury from establishing the port. There were adhesions of the cecum and ascending colon to the anterior abdominal wall. It was necessary to dissect these adhesions as it became apparent that the appendix was retrocecal. The anterior tinea was followed to the proximal end of the cecum. The base of the appendix was identified. It was necessary to lift the cecum to facilitate exposure of the retrocecal appendix. The appendix was adherent to the retroperitoneal wall. These adhesions were easily lysed. The tip of the appendix was also adherent to the posterior descending colon. These adhesions were mobilized to facilitate exposure of the mesoappendix. The appendix was divided at the junction of the appendix with the cecum using an Ethicon ATS 45 mm stapler using a blue/bowel cartridge. The mesoappendix was divided with a second application of the Ethicon ATS 45 mm stapler using a vascular cartridge when the appendix was from the surrounding structures it was placed in an endoscopic pouch and extracted through the infraumbilical opening. The appendix was removed and sent to pathology. The staple lines were inspected and found to be intact. Hemostasis was adequate. A small amount of hemorrhagic fluid had collected in the right paracolic gutter. This was evacuated with a suction device. The ascending colon appeared to be intact following completion of the lysis of adhesions needed to mobilize the cecum and facilitate exposure and dissection of the appendix. The pneumoperitoneum was evacuated, the laparoscopic instrumentation removed. The fascia of the infraumbilical opening was closed with interrupted [id number] of 0 Vicryl using S retractors. Additional bupivacaine with epinephrine was infiltrated into the fascia. Skin edges of the port sites were then approximated with subcuticular 4-0 Vicryl. The incisions were sealed with Dermabond dermal adhesive. The patient was taken to recovery in stable condition. Needle, sponge, and instrument counts were correct at the close of the case. The etiology of the adhesions encountered along the right anterior abdominal wall was not identified. Total volume of 0.25% bupivacaine with 1- 200,000 epinephrine, 30 mL.
[2018-07-19] MEDS ORDERED: *HR* Labetalol 20 MG/4 ML SYRINGE IVP ONE (00:46)
--- NOTE | 2018-07-19 01:08 | Anesthesia Evaluation Post Op ---
Date of Encounter: 07/19/18 Time of Encounter: 01:07 - Vital Signs Vital Signs: Vital Signs/O2 Sat/Glucose, Most Current Temp Pulse Resp BP Pulse Ox 07/19/18 00:52 78 14 152/90 91 07/19/18 00:42 99.5 F 94 12 166/93 94 07/19/18 00:32 97 13 159/91 95 07/19/18 00:22 77 13 152/94 92 07/19/18 00:12 98.4 F 84 16 149/91 99 07/18/18 21:45 107 16 161/96 96 - Lungs Lungs: Clear Ascult./Percussion - Airway Airway: Non-obstructed - Cardiovascular Regular Rate - Mental Status Mental Status: Alert & Oriented, Answers Appropriately - Pain Pain Scale: 0 Pain Scale used: Numeric (1 - 10) - Nausea Vomiting Nausea Vomiting: Not Present - Hydration Hydration: Ice chips, Has not voided - Discharge PostOp Status: Transfer Patient to floor Anes Supervising Prov Stmt: Pt seen/evaluated, VSS and has met criteria for discharge to floor. - MD Ngozi
[2018-07-19] MEDS ORDERED: Acetaminophen 325 MG TABLET PO PRN (01:11)
[2018-07-19] MEDS ORDERED: *HR* OxyCODONE Immed Rel 5 MG TABLET PO PRN (01:11)
[2018-07-19] MEDS ORDERED: *HR* OxyCODONE/APAP 5/325 TABLET PO PRN (01:11)
[2018-07-19] MEDS ORDERED: Ringers Solution, Lactated 1,000 ML IVC SCH (01:11)
[2018-07-19] MEDS ORDERED: Piperacillin/Tazobactam 3.375 GM in 0.9 % Sodium Chloride Mini Bag 100 ML IVPB ONE (04:00)
[2018-07-19 06:31] VITALS: BP 125/70
--- NOTE | 2018-07-19 09:12 | General Surgery Progress Note ---
Date of Encounter: 07/19/18 Time of Encounter: 09:09 Subjective Patient reports: feels better, pain is less, tolerating a regular diet Narrative: General Surgery - post op Patient feeling significantly improved; abdominal pain markedly diminished, now predominantly located at the infraumbilical port site. The patient is afebrile, 98.0, pulse 89-96; respirations 1618; blood pressure 146/85- 125/70; SPO2 on room air 96-99% Lungs clear; no obvious pain on deep inspiration Abdomen: Soft with active bowel sounds. Port sites intact, clean and dry. Preoperative right lower quadrant abdominal pain is no longer evident. Postoperative CBC pending Operative pathology pending Impression: Acute retrocecal appendicitis, status post laparoscopic appendectomy. Satisfactory postoperative status Plan: Discharge home Outpatient surgical follow-up, 07/25/18. Objective Vital Signs - Last 8 Hours Temp Pulse Resp BP Pulse Ox 07/19/18 06:26 98.0 F 96 18 125/70 96 07/19/18 04:21 98.0 F 89 16 146/85 98 07/19/18 03:42 98.3 F 96 16 135/81 99 07/19/18 02:33 98.2 F 89 16 156/94 98 07/19/18 01:54 98.5 F 89 16 149/90 96 07/19/18 01:31 98.0 F 86 16 146/90 97 07/19/18 01:11 98.9 F 96 16 155/93 94 Intake and Output 07/18/18 07/19/18 07/19/18 23:59 07:59 15:59 Intake Total 1020 / 1020 700 / 700 Output Total 505 / 505 Balance 1020 / 1020 195 / 195 Intake: IV Fluids 1020 / 1020 0.9 % Sodium Chloride 1,000 ML 1000 / 1000 @ 999 mls/hr IVC .Q1H1M ONE Rx# :[id number] Zosyn 3.375 GM In Water for inj . (sterile) 20 ML @ 400 mls/hr IVP ONCE ONE Rx#:[id number] Oral 700 / 700 Output: Urine 500 / 500 Estimated Blood Loss 5 / 5 Other: Weight 96.071 kg - Labs 07/18/18 19:15 07/18/18 19:15 Diabetes panel 07/18/18 Range/Units 19:15 Sodium 140 (136-145) mEq/L Potassium 3.3 L (3.5-5.1) mEq/L Chloride 104 (98-107) mEq/L Carbon Dioxide 26 (23-29) mEq/L BUN 12 (6-20) mg/dL Creatinine 0.81 (0.60-1.20) mg/dL Glucose 138 H (70-105) mg/dL Calcium 9.5 (8.6-10.3) mg/dL AST 24 (13-39) Units/L ALT 39 (7-52) Units/L Alkaline Phosphatase 47 (34-104) Units/L Albumin 4.2 (3.5-5.7) g/dL Calcium panel 07/18/18 Range/Units 19:15 Calcium 9.5 (8.6-10.3) mg/dL Albumin 4.2 (3.5-5.7) g/dL Pituitary panel 07/18/18 Range/Units 19:15 Sodium 140 (136-145) mEq/L Potassium 3.3 L (3.5-5.1) mEq/L Chloride 104 (98-107) mEq/L Carbon Dioxide 26 (23-29) mEq/L BUN 12 (6-20) mg/dL Creatinine 0.81 (0.60-1.20) mg/dL Glucose 138 H (70-105) mg/dL Calcium 9.5 (8.6-10.3) mg/dL Adrenal panel 07/18/18 Range/Units 19:15 Sodium 140 (136-145) mEq/L Potassium 3.3 L (3.5-5.1) mEq/L Chloride 104 (98-107) mEq/L Carbon Dioxide 26 (23-29) mEq/L BUN 12 (6-20) mg/dL Creatinine 0.81 (0.60-1.20) mg/dL Glucose 138 H (70-105) mg/dL Calcium 9.5 (8.6-10.3) mg/dL Total Bilirubin 0.5 (0.3-1.0) mg/dL AST 24 (13-39) Units/L ALT 39 (7-52) Units/L Alkaline Phosphatase 47 (34-104) Units/L Albumin 4.2 (3.5-5.7) g/dL Consult Discharge Plan - Plan Referrals: Lavell Ramires MD [Non-Partnered Physician] - Mirtha Johnson, GUNJAN [Primary Care Provider] -
--- NOTE | 2018-07-19 09:15 | Discharge Summary ---
Outpatient Proc Discharge Plan - Plan Additional Instructions: Regular diet Activity as tolerated; lifting limited Mill[place] 20 pounds Patient may shower, cleanse incisions with soap and water Tylenol, ibuprofen, Motrin, etc. as needed for pain Prescription for Percocet 5/325, #8, one every 6 hours as needed for pain not relieved by [id number] medications Outpatient surgical follow-up, 07/25/18. Patient to call office Saturday a.m. to make this appointment Prescriptions: OxyCODONE/APAP 5/325 [Percocet 5/325 MG] 1 each PO Q6HR PRN 2 Days #8 tablet PRN Reason: pain not relieved by Tylenol Home Medications: Cetirizine HCl [Zyrtec] 10 mg PO DAILY PRN 07/18/18 [History] l-Norgest/E.estradiol-E.estrad [Seasonique 0.15-0.03-0.01 Tab] 1 tab PO DAILY 07/18/18 [History] Acetaminophen [Tylenol] 650 mg PO Q6HR PRN tablet 07/19/18 [Rx] OxyCODONE/APAP 5/325 [Percocet 5/325 MG] 1 each PO Q6HR PRN 2 Days #8 tablet 07/19/18 [Rx]
[2018-07-19 09:51] LABS: Basophils % 0.2 %; Eosinophils % 0.1 %; Hematocrit 40.2 % (35.3-44.9); Hemoglobin 12.8 g/dL (11.5-15.4); Immature Granulocytes % 0.6 % (0-4); Lymphocytes # 2.1 K/mcL (0.6-4.6); Lymphocytes % 11.2 %; Mean Corpuscular HGB Conc 31.8 g/dL (31.6-35.5); Mean Corpuscular Hemoglobin 25.9 pg (28.0-33.3); Mean Corpuscular Volume 81.4 fL (83.0-100.0); Mean Platelet Volume 9.1 fL (9.4-12.4); Monocytes # 0.8 K/mcL (0.0-1.3); Monocytes % 4.1 %; Neutrophils # 15.9 K/mcL (1.6-8.9); Platelet Count 350 K/mcL (140-400); Red Blood Count 4.94 M/mcL (3.82-4.97); Red Cell Distribution Width 14.8 % (11.5-14.5); Segmented Neutrophils % 83.8 %
== END 2018-07-19 09:50 | disposition home or self-care (01) ==
LOC: EMEROOARM 18:01 → 3ANU 18:01
PROVIDERS: ADMIT Surgery; ATTEND Surgery